=== PATIENT | female | born 1970 | race Caucasian/White ===

== ENCOUNTER 2025-03-01 10:58 | Inpatient (IN) | payer OTHER ==
[~2025-03-01] VITALS: Ht 162.6 cm; Wt 140.0 kg
[2025-03-01] VITALS (7 sets, daily range): BP systolic 88–136; BP diastolic 56–84; TEMP 96.6–97.1; O2SAT 97–99
[2025-03-01] MEDS: NS (Normal Saline) 0.9% 1,000 ML IV ONE (11:42)
[2025-03-01 11:44] LABS: BASO # 0.1 10^3/uL (0.0-0.2); BASO % 1.0 % (0.0-1.0); EOS # 0.1 10^3/uL (0.0-0.5); EOS % 0.6 % (0.0-3.0); LYMPH # 1.7 10^3/uL (1.5-5.0); LYMPH % 13.1 % (24.0-44.0); MONO # 1.1 10^3/uL (0.0-0.8); MONO % 8.0 % (2.0-8.0); NEUTROPHILS # 10.1 10^3/uL (1.5-8.5); NEUTROPHILS % 76.8 % (36.0-66.0); PLATELET COUNT, AUTOMATED 403 10^3/uL (150-450)
[2025-03-01 12:09] LABS: CK-MB VALUE MASS 3.4 NG/ML (<3.6)
[2025-03-01] MEDS: diphenhydrAMINE 50 MG/ML VIAL IV ONE (12:10)
[2025-03-01] MEDS: FAMOTIDINE 20 MG/2 ML VIAL IVP ONE (12:10)
[2025-03-01 12:11] LABS: ALT/SGPT 26 U/L (7.0-40); AST/SGOT 30 U/L (<34); CALCIUM LEVEL 9.0 MG/DL (8.5-10.1); CARBON DIOXIDE LEVEL 22 MMOL/L (20-31); CHLORIDE LEVEL 108 MMOL/L (98-107); CREATININE FOR GFR 0.76 MG/DL (0.55-1.30); GLOMERULAR FILTRATION RATE > 90.0 (>51); POTASSIUM SERUM 4.7 MMOL/L (3.5-5.1); SODIUM LEVEL 143 MMOL/L (136-145)
[2025-03-01 12:13] LABS: FREE T4 1.83 NG/DL (0.89-1.76)
[2025-03-01] MEDS ORDERED: ISOVUE-370 76% 100 ML VIAL As Ordered ONE (12:13)
[2025-03-01 12:26] LABS: CPK CREATINE PHOSPHOKINASE 74 U/L (34-145); MB/CK RELATIVE INDEX 4.59 (< OR =4)
[2025-03-01 13:18] LABS: CK-MB VALUE MASS 3.2 NG/ML (<3.6)
[2025-03-01 13:21] LABS: CPK CREATINE PHOSPHOKINASE 85.0 U/L (34-145); MB/CK RELATIVE INDEX 3.76 (< OR =4)
[2025-03-01] MEDS ORDERED: ENOXAPARIN 100 MG/1 ML SYRINGE (J1650 PER 10MG) SC ONE (13:40)
[2025-03-01] MEDS: LevoFLOXacin IV 750 MG in IV 1 EA IV ONE (13:48)
[2025-03-01] MEDS: ENOXAPARIN 120 MG/0.8 ML SYRINGE SC ONE (14:16)
[2025-03-01] MEDS: ACETAMINOPHEN *IV* 1,000 MG in IV 1 EA IV ONE (14:16)
[2025-03-01] MEDS: LIDOCAINE 2% 5 ML JELLY UROJET TOP ONE (14:29)
[2025-03-01 15:01] LABS: CREATININE FOR GFR 0.69 MG/DL (0.55-1.30); GLOMERULAR FILTRATION RATE > 90.0 (>51)
[2025-03-01] MEDS ORDERED: TRIA430O2 TOP (15:38)
[2025-03-01] MEDS ORDERED: BAYE325T2 PO (15:38)
[2025-03-01] MEDS ORDERED: TIRZ2.5P SQ (15:38)
[2025-03-01] MEDS ORDERED: HOME MED LIST COMPLETE! XX SCH (15:40)
[2025-03-01] MEDS: ONDANSETRON 4MG 2ML VIAL IV PRN (17:27)
[2025-03-01] MEDS: IBUPROFEN 800 MG TAB PO ONE (17:28)
[2025-03-01] MEDS: ACETAMINOPHEN 325 MG TAB PO PRN (20:53)
[2025-03-02] VITALS (17 sets, daily range): BP systolic 99–150; BP diastolic 57–91; TEMP 96.9–98.1; O2SAT 90–98
[2025-03-02] MEDS: ENOXAPARIN 120 MG/0.8 ML SYRINGE SC SCH (01:34)
[2025-03-02 06:25] LABS: KETONE, URINE AUTO RFX TRACE mg/dL (NEGATIVE); LEUKOCYTE ESTERASE UR AUTO RFX NEGATIVE (NEGATIVE); MUCUS, URINE RFX SMALL (NEGATIVE); NITRITE, URINE AUTO RFX NEGATIVE (NEGATIVE); RBC, URINE AUTO RFX 2 /HPF (0-3); SQUAM EPITHELIAL CELL UR AURFX 6 /HPF (0-6); WBC, URINE AUTO RFX 1 /HPF (0-3)
[2025-03-02] MEDS: OMEPRAZOLE 20MG CAP PO SCH (09:52)
[2025-03-02 11:26] LABS: ALT/SGPT 26 U/L (7.0-40); AST/SGOT 26 U/L (<34); CALCIUM LEVEL 9.2 MG/DL (8.5-10.1); CARBON DIOXIDE LEVEL 23 MMOL/L (20-31); CHLORIDE LEVEL 108 MMOL/L (98-107); CREATININE FOR GFR 0.71 MG/DL (0.55-1.30); GLOMERULAR FILTRATION RATE > 90.0 (>51); MAGNESIUM LEVEL 2.0 MG/DL (1.8-2.4); PHOSPHORUS LEVEL 3.0 MG/DL (2.5-4.9); POTASSIUM SERUM 5.0 MMOL/L (3.5-5.1); SODIUM LEVEL 142 MMOL/L (136-145)
[2025-03-02] MEDS: LEVALBUTEROL HFA 45 MCG/ACT 15 GM INHALER INH SCH (13:18)
[2025-03-02] MEDS: guaiFENesin DM LIQ 10ML UD PO ONE (18:01)
[2025-03-02] MEDS: IBUPROFEN 400 MG TAB PO PRN (18:03)
[2025-03-02] MEDS ORDERED: guaiFENesin DM *SUGAR FREE* 5ML**DIABETIC TUSSIN DM PO PRN (22:00)
[2025-03-02] MEDS: RAMELTEON 8 MG TAB PO SCH (23:05)
[2025-03-03] VITALS (17 sets, daily range): BP systolic 97–136; BP diastolic 55–75; TEMP 96.6–97.3; O2SAT 92–100
[2025-03-03 05:48] LABS: BASO # 0.1 10^3/uL (0.0-0.2); BASO % 0.5 % (0.0-1.0); EOS # 0.0 10^3/uL (0.0-0.5); EOS % 0.1 % (0.0-3.0); LYMPH # 3.0 10^3/uL (1.5-5.0); LYMPH % 22.7 % (24.0-44.0); MONO # 1.4 10^3/uL (0.0-0.8); MONO % 10.8 % (2.0-8.0); NEUTROPHILS # 8.7 10^3/uL (1.5-8.5); NEUTROPHILS % 65.4 % (36.0-66.0); PLATELET COUNT, AUTOMATED 393 10^3/uL (150-450)
[2025-03-03 06:23] LABS: CALCIUM LEVEL 9.0 MG/DL (8.5-10.1); CARBON DIOXIDE LEVEL 24.0 MMOL/L (20-31); CHLORIDE LEVEL 108.0 MMOL/L (98-107); CREATININE FOR GFR 0.99 MG/DL (0.55-1.30); GLOMERULAR FILTRATION RATE 67.8 (>51); MAGNESIUM LEVEL 2.1 MG/DL (1.8-2.4); POTASSIUM SERUM 4.8 MMOL/L (3.5-5.1); SODIUM LEVEL 142.0 MMOL/L (136-145)
[2025-03-03 08:03] LABS: CK-MB VALUE MASS 3.6 NG/ML (<3.6)
[2025-03-03 08:10] LABS: CPK CREATINE PHOSPHOKINASE 144.0 U/L (34-145); MB/CK RELATIVE INDEX 2.5 (< OR =4)
[2025-03-03] MEDS: ASPIRIN 81 MG ENTERIC TABLET PO SCH (08:52)
[2025-03-03] MEDS ORDERED: ASPIRIN 325 MG TAB PO SCH (09:00)
[2025-03-03] MEDS: KETOROLAC 30 MG/ML 1 ML VIAL IV ONE (11:04)
[2025-03-03] MEDS: ACETAMINOPHEN 325 MG TAB PO SCH (11:04)
[2025-03-03] MEDS: MORPHINE 2 MG/ML 1 ML VIAL IV PRN (11:10)
[2025-03-03] MEDS: MORPHINE 4 MG/ML 1 ML VIAL IV PRN (13:18)
[2025-03-04] VITALS (21 sets, daily range): BP systolic 106–140; BP diastolic 58–80; TEMP 96.9–97.1; O2SAT 88–98
[2025-03-04 05:53] LABS: PLATELET COUNT, AUTOMATED 407 10^3/uL (150-450)
[2025-03-04 06:23] LABS: CPK CREATINE PHOSPHOKINASE 102.0 U/L (34-145)
[2025-03-04 06:24] LABS: ALT/SGPT 43.0 U/L (7.0-40); AST/SGOT 46.0 U/L (<34); CALCIUM LEVEL 8.9 MG/DL (8.5-10.1); CARBON DIOXIDE LEVEL 27.0 MMOL/L (20-31); CHLORIDE LEVEL 105.0 MMOL/L (98-107); CK-MB VALUE MASS 3.7 NG/ML (<3.6); CREATININE FOR GFR 1.11 MG/DL (0.55-1.30); GLOMERULAR FILTRATION RATE 59.1 (>51); MB/CK RELATIVE INDEX 3.62 (< OR =4); POTASSIUM SERUM 4.5 MMOL/L (3.5-5.1); SODIUM LEVEL 140.0 MMOL/L (136-145)
[2025-03-04] MEDS ORDERED: ALBUTEROL SULFATE 2.5 MG/0.5 ML INH CONCENTRATE NEB SOLN NEB PRN (07:15)
[2025-03-04 14:16] LABS: CARDIOLIPIN IGA ANTIBODY < 2.0 APL-U/mL (<20.0); CARDIOLIPIN IGG ANTIBODY < 2.0 GPL-U/mL (<20.0); CARDIOLIPIN IGM ANTIBODY < 2.0 MPL-U/mL (<20.0)
[2025-03-04] MEDS: methylPREDNISolone 4 MG TAB PO SCH (20:04)
[2025-03-05] VITALS (32 sets, daily range): BP systolic 103–148; BP diastolic 58–76; TEMP 96.8–97.8; O2SAT 90–97
[2025-03-05 06:15] LABS: PLATELET COUNT, AUTOMATED 408 10^3/uL (150-450)
[2025-03-05 06:39] LABS: ALT/SGPT 73.0 U/L (7.0-40); AST/SGOT 72.0 U/L (<34); CALCIUM LEVEL 9.3 MG/DL (8.5-10.1); CARBON DIOXIDE LEVEL 24.0 MMOL/L (20-31); CHLORIDE LEVEL 103.0 MMOL/L (98-107); CREATININE FOR GFR 0.99 MG/DL (0.55-1.30); GLOMERULAR FILTRATION RATE 67.8 (>51); POTASSIUM SERUM 4.5 MMOL/L (3.5-5.1); SODIUM LEVEL 142.0 MMOL/L (136-145)
[2025-03-05] MEDS: MIDAZOLAM INJ 2 MG/2 ML VIAL IV PRN (08:14)
[2025-03-05] MEDS: NS (Normal Saline) 0.9% 1,000 ML IV SCH ×2 (08:15→11:24)
[2025-03-05] MEDS: HEPARIN 1,000 UNITS/ML 10 ML VIAL (FOR RADIOLOGY & DIALYSIS ONLY) IV PRN (08:42)
[2025-03-05] MEDS: ISOVUE-300 61% 100 ML VIAL IV SCH (09:58)
[2025-03-05] MEDS: ISOVUE-300 61% 100 ML VIAL IV STA (09:59)
[2025-03-05] MEDS: LIDOCAINE 1% MDV 20 ML VIAL SC SCH (09:59)
[2025-03-05 10:19] LABS: DRVV SCREEN 42.9 SECONDS
[2025-03-05 10:23] LABS: PTT LUPUS TYPE ANTICOAG SCREEN 1.12 (0-1.20)
[2025-03-05 12:41] LABS: PHOSPHOLIPIDS LEVEL 152 mg/dL (151-264)
[2025-03-05] MEDS: ENOXAPARIN 120 MG/0.8 ML SYRINGE SC ONE (21:24)
[2025-03-05] MEDS ORDERED: methylPREDNISolone 4 MG TAB PO SCH (23:00)
[2025-03-05] MEDS: methylPREDNISolone 4 MG TAB PO ONE (23:28)
[2025-03-06] VITALS (34 sets, daily range): BP systolic 120–152; BP diastolic 57–77; TEMP 96.6–97.9; O2SAT 90–98
[2025-03-06 00:48] LABS: PROTEIN C FUNCTIONAL ACTIVITY 72 % normal (70-180); PROTEIN S FUNCTIONAL ACTIVITY 63 % normal (60-140)
[2025-03-06 05:55] LABS: PLATELET COUNT, AUTOMATED 389 10^3/uL (150-450)
[2025-03-06 06:26] LABS: ALT/SGPT 68.0 U/L (7.0-40); AST/SGOT 45.0 U/L (<34); CALCIUM LEVEL 8.7 MG/DL (8.5-10.1); CARBON DIOXIDE LEVEL 26.0 MMOL/L (20-31); CHLORIDE LEVEL 104.0 MMOL/L (98-107); CREATININE FOR GFR 0.82 MG/DL (0.55-1.30); GLOMERULAR FILTRATION RATE 85.0 (>51); POTASSIUM SERUM 4.3 MMOL/L (3.5-5.1); SODIUM LEVEL 141.0 MMOL/L (136-145)
[2025-03-06] MEDS: INSULIN LISPRO (NovoLOG) PER UNIT SC SCH ×2 (07:30→20:12)
[2025-03-06] MEDS ORDERED: GLUCAGON INJ 1 MG VIAL SC PRN (07:35)
[2025-03-06] MEDS ORDERED: DEXTROSE 50% 50 ML SYRINGE IV PRN (07:35)
[2025-03-06] MEDS ORDERED: GLUCOSE 4 GM CHEW PO PRN (07:35)
[2025-03-06] MEDS: methylPREDNISolone 4 MG TAB PO ONE (09:19)
[2025-03-06] MEDS: NS (Normal Saline) 0.9% 1,000 ML IV SCH ×2 (10:00→12:10)
[2025-03-06] MEDS: HEPARIN 1,000 UNITS/ML 10 ML VIAL (FOR RADIOLOGY & DIALYSIS ONLY) IV PRN (11:28)
[2025-03-06] MEDS: LIDOCAINE 1% MDV 20 ML VIAL SC SCH (11:34)
[2025-03-06] MEDS: ISOVUE-300 61% 100 ML VIAL IV SCH (11:34)
[2025-03-06] MEDS: MIDAZOLAM INJ 2 MG/2 ML VIAL IV PRN (11:35)
[2025-03-06] MEDS ORDERED: ELIQ5TAB PO (14:16)
[2025-03-06] MEDS: traMADol 50 MG TAB PO PRN (16:08)
[2025-03-06 16:19] LABS: FACTOR V LEIDEN FOR MEDINET POSITIVE
[2025-03-07] VITALS (12 sets, daily range): BP systolic 113–120; BP diastolic 56–70; TEMP 96.8–97; O2SAT 90–95
[2025-03-07 06:09] LABS: PLATELET COUNT, AUTOMATED 287 10^3/uL (150-450)
[2025-03-07 06:29] LABS: ALT/SGPT 53.0 U/L (7.0-40); AST/SGOT 26.0 U/L (<34); CALCIUM LEVEL 8.6 MG/DL (8.5-10.1); CARBON DIOXIDE LEVEL 28.0 MMOL/L (20-31); CHLORIDE LEVEL 107.0 MMOL/L (98-107); CREATININE FOR GFR 0.8 MG/DL (0.55-1.30); GLOMERULAR FILTRATION RATE 87.5 (>51); POTASSIUM SERUM 4.3 MMOL/L (3.5-5.1); SODIUM LEVEL 144.0 MMOL/L (136-145)
[2025-03-07] MEDS ORDERED: ACET32TAB PO (08:04)
[2025-03-07 20:57] LABS: FACTOR II PROTHROMBIN GENE AN NEGATIVE
[2025-03-11] MEDS ORDERED: MOUNJARO SC SCH (09:00)
== END 2025-03-07 10:36 | disposition home or self-care (01) | DRG 163 ==
LOC: M ED 10:58 → EDBD 10:58 → M ED INP 15:55 → M ICU 16:30 → M PCU 03-02 20:05
PROVIDERS: ADMIT Internal Medicine Pulmonary Disease; ATTEND Internal Medicine
PROC: 02V Heart and Great Vessels, Restriction (ICD-10-PCS; 2025-03-05)
PROC: 02CQ3ZZ Extirpation of Matter from Right Pulmonary Artery, Percutaneous Approach (ICD-10-PCS; principal; 2025-03-05 08:00)
PROC: 02V Heart and Great Vessels, Restriction (ICD-10-PCS; 2025-03-06)
PROC: 02CQ3ZZ Extirpation of Matter from Right Pulmonary Artery, Percutaneous Approach (ICD-10-PCS; 2025-03-06)
DX: I26.99 Other pulmonary embolism without acute cor pulmonale (principal); J96.01 Acute respiratory failure with hypoxia; E87.20 Acidosis, unspecified; Z68.43 Body mass index [BMI] 50.0-59.9, adult; I82.413 Acute embolism and thrombosis of femoral vein, bilateral; I27.20 Pulmonary hypertension, unspecified; I36.0 Nonrheumatic tricuspid (valve) stenosis; I48.0 Paroxysmal atrial fibrillation; K21.9 Gastro-esophageal reflux disease without esophagitis; J44.9 Chronic obstructive pulmonary disease, unspecified; I25.10 Atherosclerotic heart disease of native coronary artery without angina pectoris; Z95.1 Presence of aortocoronary bypass graft; E66.01 Morbid (severe) obesity due to excess calories; F17.200 Nicotine dependence, unspecified, uncomplicated; Z91.041 Radiographic dye allergy status; Z88.0 Allergy status to penicillin; Z79.82 Long term (current) use of aspirin; Z79.899 Other long term (current) drug therapy; Z98.84 Bariatric surgery status

== ENCOUNTER → 2025-03-19 | Outpatient (CLI) | payer OTHER ==
[~2025-03-19] MED LIST: ACET32TAB PO; BAYE325T2 PO; DIPH50CA31 PO; ELIQ5TAB PO; METH32TA PO; TIRZ2.5P SQ; TRIA430O2 TOP
== END ==
LOC: M RAD 12:39
PROVIDERS: ATTEND Radiology Diagnostic Radiology
DX: I26.99 Other pulmonary embolism without acute cor pulmonale (principal)

== ENCOUNTER → 2025-03-23 | Outpatient (CLI) | payer OTHER ==
[~2025-03-23] MED LIST changes: +NS (Normal Saline) 0.9% 1,000 ML IV SCH
[2025-03-23 12:40] VITALS: TEMP 97.9
[2025-03-23] MEDS: MIDAZOLAM INJ 2 MG/2 ML VIAL IV PRN (13:56)
[2025-03-23] MEDS: NS (Normal Saline) 0.9% 1,000 ML IV SCH (13:56)
[2025-03-23] MEDS: HEPARIN 1,000 UNITS/ML 10 ML VIAL (FOR RADIOLOGY & DIALYSIS ONLY) IV PRN (14:10)
[2025-03-23] MEDS: LIDOCAINE 1% MDV 20 ML VIAL SC SCH (14:56)
[2025-03-23] MEDS: ISOVUE-300 61% 100 ML VIAL IV SCH (14:57)
[2025-03-23 16:05] VITALS: BP 150/66; O2SAT 95
== END ==
LOC: M IRPRO 12:18
PROVIDERS: ATTEND Radiology Diagnostic Radiology
DX: I82.411 Acute embolism and thrombosis of right femoral vein (principal); I82.431 Acute embolism and thrombosis of right popliteal vein
CPT/HCPCS: 37187; 99152; 99153; C1757; C1769; C1887; J2250; J3010; Q9967

== ENCOUNTER → 2025-03-25 | Outpatient (POV) | payer OTHER ==
[~2025-03-25] VITALS: Ht 160 cm; Wt 128.2 kg
[~2025-03-25] MED LIST changes: -NS (Normal Saline) 0.9% 1,000 ML IV SCH
[2025-03-25 13:45] VITALS: BP 160/68; O2SAT 97
== END ==
LOC: M IRPOV 13:31
PROVIDERS: ATTEND Registered Nurse School
DX: Z48.812 Encounter for surgical aftercare following surgery on the circulatory system (principal); Z86.718 Personal history of other venous thrombosis and embolism; Z79.01 Long term (current) use of anticoagulants; Z91.041 Radiographic dye allergy status; Z88.0 Allergy status to penicillin; Z91.048 Other nonmedicinal substance allergy status

== ENCOUNTER 2025-06-17 11:02 | Emergency (ER) | payer OTHER ==
[2025-06-17 11:36] LABS: BASO # 0.1 10^3/uL (0.0-0.2); BASO % 1.2 % (0.0-1.0); EOS # 0.3 10^3/uL (0.0-0.5); EOS % 3.1 % (0.0-3.0); LYMPH # 1.7 10^3/uL (1.5-5.0); LYMPH % 18.4 % (24.0-44.0); MONO # 0.7 10^3/uL (0.0-0.8); MONO % 7.7 % (2.0-8.0); NEUTROPHILS # 6.5 10^3/uL (1.5-8.5); NEUTROPHILS % 69.4 % (36.0-66.0); PLATELET COUNT, AUTOMATED 433 10^3/uL (150-450)
[2025-06-17 12:07] LABS: INR 1.06
[2025-06-17 12:10] LABS: C REACTIVE PROTEIN QUANTITATIV 5.73 MG/DL (<1.0); CALCIUM LEVEL 8.5 MG/DL (8.5-10.1); CARBON DIOXIDE LEVEL 25 MMOL/L (20-31); CHLORIDE LEVEL 107 MMOL/L (98-107); CREATININE FOR GFR 0.67 MG/DL (0.55-1.30); GLOMERULAR FILTRATION RATE > 90.0 (>51); POTASSIUM SERUM 4.3 MMOL/L (3.5-5.1); SODIUM LEVEL 143 MMOL/L (136-145)
[2025-06-17] MEDS: MORPHINE 4 MG/ML 1 ML VIAL IV ONE ×2 (13:45→17:47)
[2025-06-17] MEDS: NS 500 ML IV ONE (14:29)
[2025-06-17] MEDS: diphenhydrAMINE 50 MG/ML VIAL IV ONE (14:39)
[2025-06-17] MEDS: FAMOTIDINE 20 MG/2 ML VIAL IVP ONE (14:39)
[2025-06-17] MEDS ORDERED: ISOVUE-370 76% 100 ML VIAL As Ordered ONE (14:47)
[2025-06-17] MEDS ORDERED: ELIQ5TAB PO (17:15)
[2025-06-17] MEDS ORDERED: PERC5TAB12 PO (17:23)
[2025-06-17] MEDS: APIXABAN 5 MG TAB PO ONE (17:46)
[2025-06-17 17:52] VITALS: BP 141/91
[2025-06-17 18:07] VITALS: O2SAT 95
[2025-06-17 18:17] VITALS: TEMP 98.1
== END 2025-06-17 18:19 | disposition home or self-care (01) ==
LOC: EDBD 11:02 → EDUNIT# 11:02 → M ED 12:16
DX: I82.412 Acute embolism and thrombosis of left femoral vein (principal); J45.909 Unspecified asthma, uncomplicated; F41.9 Anxiety disorder, unspecified; F17.200 Nicotine dependence, unspecified, uncomplicated; Z86.718 Personal history of other venous thrombosis and embolism; Z86.79 Personal history of other diseases of the circulatory system; Z88.0 Allergy status to penicillin; Z91.041 Radiographic dye allergy status; Z91.09 Other allergy status, other than to drugs and biological substances; Z79.01 Long term (current) use of anticoagulants; Z79.899 Other long term (current) drug therapy; Z86.711 Personal history of pulmonary embolism
CPT/HCPCS: 74177; 80048; 85025; 85610; 85652; 86140; 93971; 96361; 96374; 96375; 96376; 99285; J1200; J1308; J2919; Q9967